=== PATIENT | female | born 1980 | race Caucasian/White ===

== ENCOUNTER 2016-08-27 16:14 | Observation (INO) | payer OTHER ==
[2016-08-27 17:52] LABS: Urine Bacteria Absent (Absent); Urine Bilirubin Negative (Negative); Urine Glucose Negative (Negative); Urine Nitrite Negative (Negative)
[2016-08-27 18:23] LABS: Hematocrit 37 % (35-47); Hemoglobin 11.9 g/dl (12.0-16.0); Mean Corpuscular HGB Conc 32 g/dl (31-36); Mean Corpuscular Hemoglobin 27 pg (27-31); Mean Corpuscular Volume 83 fL (80-97); Mean Platelet Volume 8 um3 (7.4-10.4); Red Blood Count 4.47 10^6/ul (4.0-5.4); Red Cell Distribution Width 15 % (10.5-15); White Blood Count 7.2 10^3/ul (3.5-10.8)
[2016-08-27 18:37] LABS: Albumin 4.5 g/dL (3.2-5.2); BUN/Creatinine Ratio 15.7 (8-20); Calcium 9.9 mg/dL (8.6-10.3); EGFR African American 100.6 (>60); EGFR Non-African American 78.2 (>60); Globulin 2.8 g/dL (2-4); Potassium 3.6 mmol/L (3.5-5.0); Total Bilirubin 0.3 mg/dL (0.2-1.0); Total Protein 7.3 g/dL (6.4-8.9)
[2016-08-27] MEDS ORDERED: Morphine INJ* 4 MG/ML 1 ML CARPUJECT IV ONE (20:22)
[2016-08-27] MEDS ORDERED: Ondansetron INJ* 2 MG/ML VIAL IV ONE (20:22)
--- NOTE | 2016-08-27 20:35 | RAD ---
Indication: Evaluate for ectopic . Real-time sonography of the pelvis was performed. The uterus demonstrates an intrauterine device in place which appears to be partially within the cervix. There is echogenic free fluid in the pelvis. This is suggestive of hemorrhage. The right ovary measures 2.4 x 2.1 x 3.1 cm. Extra ovarian echogenic mass is noted measuring 4.0 x 3.7 x 3.6 cm. A ruptured ectopic cannot be excluded. The left ovary measures 2.0 x 1.5 x 2.3 cm. IMPRESSION: Echogenic free fluid is noted suggestive of hemorrhage. Echogenic right adnexal mass suspicious for ectopic . No intrauterine is noted. There is a low lying intrauterine device noted. Findings were discussed with Dr. Ross at 2031 hours.
[2016-08-27] MEDS ORDERED: ceFAZolin 2 GM PREMIX (*) 2 GM/50 ML BAG IVPB ONE (21:44)
[2016-08-27] MEDS ORDERED: Propofol* 10 MG/ML 20 ML BTL IV PUSH ONE (22:00)
[2016-08-27] MEDS ORDERED: Lidocaine 2% MPF* 2 ML VIAL ONE (22:00)
[2016-08-27] MEDS ORDERED: Dexamethasone IV* 4 MG/ML 1 ML (4 MG) ONE (22:00)
[2016-08-27] MEDS ORDERED: Succinylcholine* 20 MG/ML 10 ML VIAL ONE (22:00)
[2016-08-27] MEDS ORDERED: fentaNYL* 50 MCG/ML 2 ML VIAL (100 MCG VIAL) ONE ×2 (22:31→23:27)
--- NOTE | 2016-08-27 22:48 | ED ---
I, Rito,Nelli, scribed for Haris Ross MD on 08/27/16 at 1938 . GI/ HPI - HPI Summary HPI Summary: This 35 y/o female presents to ED from Urgent Care for intermittent pelvic pain that radiates to back and BLE since 5 days ago. Pt has had IUD for the last 3 months. Positive urine test at Urgent Care. Pt reports mild spotting. She has been controlling her abd pain with Gas X, Tums, and APAP. PMHx includes perforated ulcer s/p surgery. LMP was 07/20/2016. - History of Current Complaint Chief Complaint: EDAbdPain Time Seen by Provider: 08/27/16 16:16 Stated Complaint: PELVIC PAIN/POSS PREG Hx Obtained From: Patient, Medical Records Onset/Duration: Started Days Ago, Resolved Timing: Intermittent Pain Intensity: 1 Location of Pain: Suprapubic Pain Characteristics: Cramping Associated Signs and Symptoms: Negative: Nausea, Vomiting, Fever Aggravating Factor(s): Nothing Alleviating Factor(s): Spontaneous Resolution - Allergy/Home Medications Allergies/Adverse Reactions: Allergies Allergy/AdvReac Type Severity Reaction Status Date / Time No Known Allergies Allergy Verified 08/27/16 16:21 Home Medications: Home Medications NK [No Home Medications Reported] 08/27/16 [History Confirmed 08/27/16] PMH/Surg Hx/FS Hx/Imm Hx GI History: Reports: Hx Ulcer Infectious Disease History: No Infectious Disease History: Denies: Traveled Outside the [place] in Last 30 Days - Family History Known Family History: Negative: Other - Negative ectopic - Social History Alcohol Use: Occasionally Hx Substance Use: No Substance Use Type: Reports: None Hx Tobacco Use: No Smoking Status (MU): Never Smoked Tobacco Review of Systems Negative: Fever Negative: Erythema Negative: Sore Throat Negative: Chest Pain Negative: Cough Negative: Abdominal Pain, Vomiting, Nausea Positive: pain - pelvic pain. Negative: dysuria Negative: Anxious, Depressed All Other Systems Reviewed And Are Negative: Yes Physical Exam - Summary Physical Exam Summary: Constitutional: Well-developed, Well-nourished, Alert. (-) Distressed Skin: Warm to touch, Dry HENT: Normocephalic; Atraumatic Eyes: Conjunctiva normal Neck: Musculoskeletal ROM normal neck. (-) JVD, (-) Stridor, (-) Tracheal deviation Cardio: Rhythm regular, rate normal, Heart sounds normal; Intact distal pulses; The pedal pulses are 2+ and symmetric. Radial pulses are 2+ and symmetric. (-) Murmur Pulmonary/Chest wall: Effort normal. (-) Respiratory distress, (-) Wheezes, (-) Rales Abd: Soft, (+) LLQ and suprapubic tenderness, (-) Distension, (-) Guarding, (- ) Rebound Musculoskeletal: (-) Edema Lymph: (-) Cervical adenopathy Neuro: Alert, Oriented x3 Psych: Mood and affect Normal Triage Information Reviewed: Yes Vital Signs On Initial Exam: Initial Vitals Temp Pulse Resp BP Pulse Ox 98.6 F 93 18 143/71 100 08/27/16 16:17 08/27/16 16:17 08/27/16 16:17 08/27/16 16:17 08/27/16 16:17 Vital Signs Reviewed: Yes - Coni Coma Scale Coma Scale Total: 15 Diagnostics - Vital Signs Vital Signs Temp Pulse Resp BP Pulse Ox 08/27/16 19:00 84 117/86 100 08/27/16 18:30 86 113/82 99 08/27/16 18:00 92 100 08/27/16 17:30 85 82/68 96 08/27/16 17:19 79 100 08/27/16 17:17 118/99 08/27/16 16:17 98.6 F 93 18 143/71 100 - Laboratory Lab Results: Lab Results 08/27/16 08/27/16 08/27/16 Range/Units 17:30 18:10 18:10 WBC 7.2 (3.5-10.8) 10^3/ul RBC 4.47 (4.0-5.4) 10^6/ul Hgb 11.9 L (12.0-16.0) g/dl Hct 37 (35-47) % MCV 83 (80-97) fL MCH 27 (27-31) pg MCHC 32 (31-36) g/dl RDW 15 (10.5-15) % Plt Count 214 (150-450) 10^3/ul MPV 8 (7.4-10.4) um3 Neut % (Auto) 62.9 (38-83) % Lymph % (Auto) 30.2 (25-47) % [place] % (Auto) 5.0 (1-9) % Eos % (Auto) 1.1 (0-6) % Baso % (Auto) 0.8 (0-2) % Absolute Neuts (auto) 4.5 (1.5-7.7) 10^3/ul Absolute Lymphs (auto) 2.2 (1.0-4.8) 10^3/ul Absolute Monos (auto) 0.4 (0-0.8) 10^3/ul Absolute Eos (auto) 0.1 (0-0.6) 10^3/ul Absolute Basos (auto) 0.1 (0-0.2) 10^3/ul Absolute Nucleated RBC 0 10^3/ul Nucleated RBC % 0.1 INR (Anticoag Therapy) (0.89-1.11) APTT (26.0-36.3) seconds Sodium 137 (133-145) mmol/L Potassium 3.6 (3.5-5.0) mmol/L Chloride 104 (101-111) mmol/L Carbon Dioxide 25 (22-32) mmol/L Anion Gap 8 (2-11) mmol/L BUN 13 (6-24) mg/dL Creatinine 0.83 (0.51-0.95) mg/dL Est GFR ( Amer) 100.6 (>60) Est GFR (Non-Af Amer) 78.2 (>60) BUN/Creatinine Ratio 15.7 (8-20) Glucose 99 (70-100) mg/dL Calcium 9.9 (8.6-10.3) mg/dL Total Bilirubin 0.30 (0.2-1.0) mg/dL AST 15 (13-39) U/L ALT 10 (7-52) U/L Alkaline Phosphatase 67 (34-104) U/L Total Protein 7.3 (6.4-8.9) g/dL Albumin 4.5 (3.2-5.2) g/dL Globulin 2.8 (2-4) g/dL Albumin/Globulin Ratio 1.6 (1-3) Beta HCG, Quant 3697.00 mIU/mL Urine Color Straw Urine Appearance Clear Urine pH 5.0 (5-9) Ur Specific Sibley 1.004 L (1.010-1.030) Urine Protein Negative (Negative) Urine Ketones Negative (Negative) Urine Blood 2+ H (Negative) Urine Nitrate Negative (Negative) Urine Bilirubin Negative (Negative) Urine Urobilinogen Negative (Negative) Ur Leukocyte Esterase Negative (Negative) Urine WBC (Auto) Trace(0-5/hpf) (Absent) Urine RBC (Auto) Trace(0-2/hpf) (Absent) Ur Squamous Epith Cells Present H (Absent) Urine Bacteria Absent (Absent) Urine Glucose Negative (Negative) Blood Type Antibody Screen 08/27/16 08/27/16 Range/Units 18:10 18:10 WBC (3.5-10.8) 10^3/ul RBC (4.0-5.4) 10^6/ul Hgb (12.0-16.0) g/dl Hct (35-47) % MCV (80-97) fL MCH (27-31) pg MCHC (31-36) g/dl RDW (10.5-15) % Plt Count (150-450) 10^3/ul MPV (7.4-10.4) um3 Neut % (Auto) (38-83) % Lymph % (Auto) (25-47) % Darlington % (Auto) (1-9) % Eos % (Auto) (0-6) % Baso % (Auto) (0-2) % Absolute Neuts (auto) (1.5-7.7) 10^3/ul Absolute Lymphs (auto) (1.0-4.8) 10^3/ul Absolute Monos (auto) (0-0.8) 10^3/ul Absolute Eos (auto) (0-0.6) 10^3/ul Absolute Basos (auto) (0-0.2) 10^3/ul Absolute Nucleated RBC 10^3/ul Nucleated RBC % INR (Anticoag Therapy) 0.88 L (0.89-1.11) APTT 32.0 (26.0-36.3) seconds Sodium (133-145) mmol/L Potassium (3.5-5.0) mmol/L Chloride (101-111) mmol/L Carbon Dioxide (22-32) mmol/L Anion Gap (2-11) mmol/L BUN (6-24) mg/dL Creatinine (0.51-0.95) mg/dL Est GFR ( Amer) (>60) Est GFR (Non-Af Amer) (>60) BUN/Creatinine Ratio (8-20) Glucose (70-100) mg/dL Calcium (8.6-10.3) mg/dL Total Bilirubin (0.2-1.0) mg/dL AST (13-39) U/L ALT (7-52) U/L Alkaline Phosphatase (34-104) U/L Total Protein (6.4-8.9) g/dL Albumin (3.2-5.2) g/dL Globulin (2-4) g/dL Albumin/Globulin Ratio (1-3) Beta HCG, Quant mIU/mL Urine Color Urine Appearance Urine pH (5-9) Ur Specific Sibley (1.010-1.030) Urine Protein (Negative) Urine Ketones (Negative) Urine Blood (Negative) Urine Nitrate (Negative) Urine Bilirubin (Negative) Urine Urobilinogen (Negative) Ur Leukocyte Esterase (Negative) Urine WBC (Auto) (Absent) Urine RBC (Auto) (Absent) Ur Squamous Epith Cells (Absent) Urine Bacteria (Absent) Urine Glucose (Negative) Blood Type O Positive Antibody Screen Pending Result Diagrams: 08/27/16 18:10 08/27/16 18:10 Lab Statement: Any lab studies that have been ordered have been reviewed, and results considered in the medical decision making process. - Additional Comments Diagnostic Additional Comments: US Transvaginal -- Echogenic free fluid is noted suggestive of hemorrhage. Echogenic right adnexal mass suspicious for ectopic . No intrauterine is noted. There is a low lying intrauterine device noted. Findings were discussed with Dr. Ross at 2031 hours. Re-Evaluation - Re-Evaluation First Eval Re-Evaluation Time: 20:55 Change: Unchanged Comment: in room to re-evaluate the pt. Her vital is still wnl and stable. GIGU Course/Dx - Course Assessment/Plan: This 35 y/o female presents to ED for pelvic pain that has been intermittent since 5 days ago. Pt has had IUD since 3 months ago, and hasn' t had her menstrual cycle since 07/20/2016. US transvaginal indicates RIGHT adnexal mass with echogenic mass that is suspicious for ectopic . Bloodwork indicates that pt is hemodynically stable. US imaging results, physical exam findings, and plan of care are shared with sales enablement specialist sales correspondence clerk, Dr. Gomez, who will examine the pt in ED. - Diagnoses Provider Diagnoses: Ruptured ectopic - Physician Notifications Discussed Care Of Patient With: Dr. Gomez (sales enablement specialist) at 2039 PM Time Discussed With Above Provider: 20:40 Instructed by Provider To: MD Will See In ED - Critical Care Time Critical Care Time: 30-74 min - 45 minutes Discharge - Discharge Plan Condition: Stable Disposition: ADMITTED TO [facility] documentation as recorded by the Rito martell Soohyun accurately reflects the service I personally performed and the decisions made by , Haris Ross MD.
[2016-08-27] MEDS ORDERED: Atracurium* 10 MG/ML 10 ML VIAL ONE (22:52)
[2016-08-27] MEDS ORDERED: Bupivacaine 0.25% SDV* 30 ML ONE (22:57)
[2016-08-27] MEDS ORDERED: HYDROmorphone INJ* 1 MG/ML CARPUJECT SYRINGE IV PRN (23:05)
[2016-08-27] MEDS ORDERED: DiMENhydriNATE IV* 50 MG/ML VIAL IV PUSH PRN (23:05)
[2016-08-28] MEDS ORDERED: fentaNYL* 50 MCG/ML 2 ML VIAL (100 MCG VIAL) ONE (00:09)
[2016-08-28] MEDS: fentaNYL* 50 MCG/ML 2 ML VIAL (100 MCG VIAL) IV PRN ×2 (00:12→00:27)
[2016-08-28] MEDS ORDERED: oxyCODONE/Acetamin 5/325 MG* TAB PO PRN (00:18)
[2016-08-28] MEDS ORDERED: Ibuprofen TAB* 600 MG PO PRN (00:26)
[2016-08-28] MEDS ORDERED: NS 0.9% 1000 ML* 1,000 ML IV SCH (00:30)
[2016-08-28] MEDS ORDERED: oxyCODONE/Acetamin 5/325 MG* TAB ONE (01:05)
[2016-08-28] MEDS ORDERED: HYDROmorphone INJ* 1 MG/ML CARPUJECT SYRINGE IV PRN (01:57)
[2016-08-28 06:22] LABS: Hematocrit 30 % (35-47); Mean Corpuscular HGB Conc 33 g/dl (31-36); Mean Corpuscular Hemoglobin 27 pg (27-31); Mean Corpuscular Volume 82 fL (80-97); Mean Platelet Volume 8 um3 (7.4-10.4); Red Blood Count 3.66 10^6/ul (4.0-5.4); Red Cell Distribution Width 15 % (10.5-15); White Blood Count 5.2 10^3/ul (3.5-10.8)
[2016-08-28 11:44] VITALS: BP 109/56
--- NOTE | 2016-08-29 05:25 | OP ---
DATE OF OPERATION: 08/27/16 - ROOM #331 DATE OF : 80 SURGEON: Darnell Gomez MD VIDEO OPERATOR: Francisca Dick MD ANESTHESIOLOGIST: Jack Gaines MD ANESTHESIA: General anesthetic with endotracheal intubation. PRE-OP DIAGNOSES: Acute abdomen, right adnexal mass on ultrasound, positive test and presence of the intrauterine device. POST-OP DIAGNOSIS: Acute abdomen, right adnexal mass on ultrasound, positive test and presence of the intrauterine device, a hemoperitoneum and a right ruptured corpus luteum cyst. OPERATIVE PROCEDURE: Removal of intrauterine device and laparoscopic evacuation of hemoperitoneum and cautery hemostasis of hemorrhagic corpus luteum cyst. ESTIMATED BLOOD LOSS: Less than 100 cc. SPECIMEN SENT TO PATHOLOGY: Pelvic peritoneal fluid to rule out products of conception. FLUIDS: She received IV crystalloid fluid. URINE OUTPUT: Clear. FINDINGS LAPAROSCOPICALLY: The patient was noted to have a hemoperitoneum that covered the entire pelvic organs, I estimated this to be around 700 to 1000 cc. She was noted to have normal uterus, normal left tube and ovary, and normal right tube and a right and a right ruptured hemorrhagic corpus luteum cyst that was actively bleeding. DESCRIPTION OF PROCEDURE: The patient was taken to the operating room where she was identified. She was placed on the operating room table where a general anesthetic with endotracheal intubation was obtained without difficulty. She was then placed in a dorsal lithotomy position, prepped and draped in a normal sterile fashion. Attention was then brought on to the patient's perineum, where the bladder was catheterized with a Hedrick catheter and drained clear urine after which a side-view speculum was inserted into the patient's vagina. The cervix was identified, grasped with a single-tooth tenaculum, the strings of the IUD were also noted. These were grasped with a long Nani clamp and removed atraumatically. After which I proceeded to insert an intrauterine ClearView manipulator into the cervix. The balloon and the manipulator was then intubated with 4 cc of sterile water and a single-tooth tenaculum was then removed as well as speculum. Attention was then brought on to the patient's abdomen where a 1 cm infraumbilical skin incision was made with the knife and carried through to the underlying layer of fascia. The fascia was then grasped with Darwin clamps, brought up to the incision. The fascia was then incised with a knife. Entry into the abdominal cavity was confirmed using Nani clamps. The Darwin clamps in the fascia were then replaced with 0 Polysorb sutures and then through this incision a 10-mm blunt trocar was introduced. The balloon and the trocar was inflated with 20 cc of air. The sutures were then attached to the trocar. The abdomen was then insufflated with CO2 gas, 2 another trocars were introduced at the right and left upper quadrant of the patient's abdomen under direct visualization. Findings laparoscopically were noted above. At this point, the patient was then placed in a steep Trendelenburg position and I proceeded to suction blood within the pelvis. After suctioning, it was noted that the right tube was within normal limits and the right ovary had findings consistent with a ruptured hemorrhagic corpus luteum cyst. The corpus luteum cyst was actively bleeding. I grasped the corpus luteum cyst with cautery forceps and applied cautery and I was able to stop the bleeding and noted hemostasis. Some of the fluid within the pelvis remained. There were some clots and there was also tissue that did not appear to be clot on bleeding. All of this was placed again under direct visualization in an Endobag. The Endobag was then removed and this specimen was sent to pathology to rule out products of conception. Second look again revealed complete hemostasis, the pelvis was then fully irrigated with normal saline. The irrigation fluid was suctioned and all the instruments were then removed from the patient's abdomen. The umbilical incision and fascia was closed with 0 Polysorb suture in running fashion and the rest of the incisions were then closed including umbilicus with a 4-0 Monocryl subcuticular stitch. The Hedrick catheter was removed as well as the uterine manipulator. Sponge, lap, and needle counts were correct x2. She was then transferred to the recovery room area in stable condition. CC: Francisca Dick MD; [facility]* [id number]/[facility] #: [id number] ALEC
--- NOTE | 2017-05-10 00:14 | DS ---
DISCHARGE SUMMARY: DATE OF ADMISSION: DATE OF DISCHARGE: HISTORY: The patient was admitted on 08/27/16 and underwent a removal of intrauterine device, laparoscopic evacuation of hemoperitoneum, cautery hemostasis of hemorrhagic corpus luteum. This operation was performed by Dr. Gomez with operations assistant, Dr. Dick. The patient's postoperative course was unremarkable on hospital day, 1 postop day 0. The patient was tolerating regular diet and was given discharge instructions for home. She was given precautions and was instructed to follow up with her primary surgeon, Dr. Gomez, for postoperative care. The final pathology specimen revealed fallopian tube contents, products of conception including rare immature villi and implantation site related to hemorrhage, so indeed the patient ended up with a diagnosis of a ruptured ectopic and corpus luteum hemorrhagic cyst as was initially thought during the surgery. The postoperative hemoglobin was noted to be 10.03, hematocrit was 30, and had a normal platelet count of 179,000. The patient was discharged to home and was to follow up with Dr. Gomez for further care and management status post laparoscopic surgery. [id number]/[facility] #: [id number] [place]
== END 2016-08-28 12:15 | disposition home or self-care (01) ==
LOC: ED 16:14 → OR 21:28 → SSU 08-28 00:52
PROVIDERS: ADMIT Obstetrics & Gynecology; ATTEND Obstetrics & Gynecology
PROC: 10D28ZZ Extraction of Products of Conception, Ectopic, Via Natural or Artificial Opening Endoscopic (ICD-10-PCS; principal; 2016-08-28)
PROC: 0U904ZZ Drainage of Right Ovary, Percutaneous Endoscopic Approach (ICD-10-PCS; 2016-08-28)
PROC: 0UPD4HZ Removal of Contraceptive Device from Uterus and Cervix, Percutaneous Endoscopic Approach (ICD-10-PCS; 2016-08-28)
DX: O00.90 Unspecified ectopic pregnancy without intrauterine pregnancy (principal); N83.11 Corpus luteum cyst of right ovary; K66.1 Hemoperitoneum; R10.30 Lower abdominal pain, unspecified; Z97.5 Presence of (intrauterine) contraceptive device
CPT/HCPCS: 36415; 76817; 80053; 81003; 81015; 84702; 85025; 85610; 85730; 86850; 86870; 86880; 86900; 86901; 86905; 86906; 86922; 88305; 96361; 96374; 96375; 99285; A9270-GY; G0378; J0330; J0690; J1100; J1170; J2270; J2405; J2704; J3010

== ENCOUNTER 2016-09-25 20:07 | Emergency (ER) | payer OTHER ==
[2016-09-25] MEDS: NS 0.9% 1000 ML* 2,000 ML IV ONE ×2 (21:45→23:06)
[2016-09-25 21:55] LABS: Hematocrit 33 % (35-47); Hemoglobin 10.7 g/dl (12.0-16.0); Mean Corpuscular HGB Conc 32 g/dl (31-36); Mean Corpuscular Hemoglobin 26 pg (27-31); Mean Corpuscular Volume 80 fL (80-97); Mean Platelet Volume 8 um3 (7.4-10.4); Red Blood Count 4.14 10^6/ul (4.0-5.4); Red Cell Distribution Width 15 % (10.5-15); White Blood Count 7.9 10^3/ul (3.5-10.8)
[2016-09-25 22:12] LABS: Albumin 4.2 g/dL (3.2-5.2); BUN/Creatinine Ratio 17.5 (8-20); C Reactive Protein 2.73 mg/L (< 5.00); Calcium 9.6 mg/dL (8.6-10.3); EGFR African American 104.4 (>60); EGFR Non-African American 81.2 (>60); Globulin 2.8 g/dL (2-4); Magnesium 2.1 mg/dL (1.9-2.7); Total Bilirubin 0.3 mg/dL (0.2-1.0)
[2016-09-25 22:50] LABS: TSH (Thyroid Stimulating Horm) 1.84 mcIU/mL (0.34-5.60)
--- NOTE | 2016-09-25 23:02 | RAD ---
Indication: History of RIGHT sided ectopic. LEFT adnexal region tenderness. Comparison: August 27, 2016 ultrasound. Technique: Transvaginal pelvic ultrasound. Report: 9.0 x 4.4 x 5.9 cm anteverted uterus. 14.8 mm endometrium. Small volume of fluid in the endometrial cavity. Small volume of free pelvic fluid in the RIGHT adnexal region. 3.2 x 2.5 x 3.1 cm RIGHT ovary with documented vascular flow is remarkable for a 2.1 x 2.0 x 2.1 cm avascular cyst with a few thin internal septations new compared with the previous exam. This may represent a follicular or hemorrhagic cyst. 3.8 x 2.4 x 2.5 cm LEFT ovary with documented vascular flow is remarkable for a 2.5 x 1.8 x 2.2 cm hypoechoic lesion with a reticulated internal architecture pattern without gross intrinsic vascularity most suspicious for a hemorrhagic cyst. No extraovarian adnexal region lesions evident. IMPRESSION: 1. Physiologic small volume of RIGHT adnexal region free fluid. 2. 2.1 cm follicular or hemorrhagic cyst of the RIGHT ovary. 3. 2.5 cm probable hemorrhagic cyst of the LEFT ovary. 4. Reassessment of the bilateral ovaries with ultrasound in 2 menstrual cycle suggested. 5. Upper normal endometrial thickness.
--- NOTE | 2016-09-25 23:57 | ED ---
Westley Mcclain Claudia, scribed for Dawood Estes MD on 09/25/16 at 2055 . Syncope/Near Syncope - HPI Summary HPI Summary: 36 year old female presents to the ED from [facility] after 2 near syncopal episodes. Pt notes one episode this am and one episode at about 1800. She notes during both episodes she was at rest and during those episodes she experiences a few seconds of dizziness. Pt notes the second episode was worse and she had to leave her chair and move to the floor due to the fact that she thought she was going to faint. pt also notes that after the second episode she had some left arm pain and notes it "felt heavy". She denies any CP, fever, chills or any dizziness now. She notes that she has a PSHx for an ectopic 4 weeks ago. Pt also notes that she is being followed by OB for elevated HCG levels. Pt denies PMHx of blood clots. SHx non smoker. The pt is not currently on any control pills. pt also notes that she has been having some "twingy" abd sensations for the past few weeks on her left upper abdomen but is unsure if it is related to the ectopic of the right abdomen. - History Of Current Complaint Chief Complaint: EDDizziness Time Seen by Provider: 09/25/16 20:43 Hx Obtained From: Patient Onset/Duration: Sudden Onset Timing: Intermittent Episode Lasting - a few seconds Activity At Onset: At Rest Associated Head Trauma: No Aggravating Factor(s): Nothing Alleviating Factor(s): Nothing Associated Signs And Symptoms: Dizzy - Allergies/Home Medications Allergies/Adverse Reactions: Allergies Allergy/AdvReac Type Severity Reaction Status Date / Time No Known Allergies Allergy Verified 08/27/16 16:21 PMH/Surg Hx/FS Hx/Imm Hx Previously Healthy: Yes Endocrine/Hematology History: Denies: Hx Diabetes GI History: Reports: Hx Ulcer, Other GI Disorders - abdominal aneurysm Infectious Disease History: No Infectious Disease History: Denies: Traveled Outside the [place] in Last 30 Days - Family History Known Family History: Negative: Other - Negative ectopic - Social History Occupation: Employed Full-time Lives: With Family Alcohol Use: Occasionally Hx Substance Use: No Substance Use Type: Reports: None Hx Tobacco Use: No Smoking Status (MU): Never Smoked Tobacco Review of Systems Constitutional: Negative Negative: Fever, Chills Eyes: Negative ENT: Negative Cardiovascular: Negative Negative: Palpitations, Chest Pain Respiratory: Negative Gastrointestinal: Negative Negative: Vomiting, Diarrhea, Nausea Genitourinary: Negative Musculoskeletal: Negative Skin: Negative Neurological: Other - intermittent episodes od dizziness now resolved Psychological: Normal All Other Systems Reviewed And Are Negative: Yes Physical Exam Triage Information Reviewed: Yes Vital Signs On Initial Exam: Initial Vitals Temp Pulse Resp BP Pulse Ox 98.7 F 96 16 113/74 100 09/25/16 20:11 09/25/16 20:11 09/25/16 20:11 09/25/16 20:11 09/25/16 20:11 Vital Signs Reviewed: Yes Appearance: Positive: Well-Appearing, No Pain Distress Skin: Positive: Warm, Skin Color Reflects Adequate Perfusion, Dry Head/Face: Positive: Normal Head/Face Inspection Eyes: Positive: EOMI, SARAH ENT: Positive: Normal ENT inspection Neck: Positive: Supple, Nontender Respiratory/Lung Sounds: Positive: Clear to Auscultation, Breath Sounds Present Cardiovascular: Positive: RRR Abdomen Description: Positive: Nontender, Soft Bowel Sounds: Positive: Present Musculoskeletal: Positive: Normal, Strength/ROM Intact Neurological: Positive: Normal, Sensory/Motor Intact, Alert, Oriented to Person Place, Time Diagnostics - Vital Signs Vital Signs Temp Pulse Resp BP Pulse Ox 09/25/16 20:11 98.7 F 96 16 113/74 100 - Laboratory Lab Results: Lab Results 09/25/16 09/25/16 09/25/16 Range/Units 21:45 21:45 21:45 WBC 7.9 (3.5-10.8) 10^3/ul RBC 4.14 (4.0-5.4) 10^6/ul Hgb 10.7 L (12.0-16.0) g/dl Hct 33 L (35-47) % MCV 80 (80-97) fL MCH 26 L (27-31) pg MCHC 32 (31-36) g/dl RDW 15 (10.5-15) % Plt Count 258 (150-450) 10^3/ul MPV 8 (7.4-10.4) um3 Neut % (Auto) 61.9 (38-83) % Lymph % (Auto) 30.7 (25-47) % Ware % (Auto) 4.9 (1-9) % Eos % (Auto) 1.2 (0-6) % Baso % (Auto) 1.3 (0-2) % Absolute Neuts (auto) 4.9 (1.5-7.7) 10^3/ul Absolute Lymphs (auto) 2.4 (1.0-4.8) 10^3/ul Absolute Monos (auto) 0.4 (0-0.8) 10^3/ul Absolute Eos (auto) 0.1 (0-0.6) 10^3/ul Absolute Basos (auto) 0.1 (0-0.2) 10^3/ul Absolute Nucleated RBC 0 10^3/ul Nucleated RBC % 0 INR (Anticoag Therapy) 0.88 L (0.89-1.11) APTT 30.5 (26.0-36.3) seconds D-Dimer, Quantitative 218 (Less Than 230) ng/mL Sodium 138 (133-145) mmol/L Potassium 4.0 (3.5-5.0) mmol/L Chloride 103 (101-111) mmol/L Carbon Dioxide 29 (22-32) mmol/L Anion Gap 6 (2-11) mmol/L BUN 14 (6-24) mg/dL Creatinine 0.80 (0.51-0.95) mg/dL Est GFR ( Amer) 104.4 (>60) Est GFR (Non-Af Amer) 81.2 (>60) BUN/Creatinine Ratio 17.5 (8-20) Glucose 103 H (70-100) mg/dL Lactic Acid (0.5-2.0) mmol/L Calcium 9.6 (8.6-10.3) mg/dL Magnesium 2.1 (1.9-2.7) mg/dL Total Bilirubin 0.30 (0.2-1.0) mg/dL AST 16 (13-39) U/L ALT 14 (7-52) U/L Alkaline Phosphatase 67 (34-104) U/L Total Creatine Kinase 71 (10-223) U/L CK-MB (CK-2) 1.0 (0.6-6.3) ng/mL Troponin I 0.00 (<0.04) ng/mL C-Reactive Protein 2.73 (< 5.00) mg/L Total Protein 7.0 (6.4-8.9) g/dL Albumin 4.2 (3.2-5.2) g/dL Globulin 2.8 (2-4) g/dL Albumin/Globulin Ratio 1.5 (1-3) Lipase 44 (11.0-82.0) U/L TSH 1.84 (0.34-5.60) mcIU/mL Beta HCG, Quant 69.83 mIU/mL 09/25/16 Range/Units 21:45 WBC (3.5-10.8) 10^3/ul RBC (4.0-5.4) 10^6/ul Hgb (12.0-16.0) g/dl Hct (35-47) % MCV (80-97) fL MCH (27-31) pg MCHC (31-36) g/dl RDW (10.5-15) % Plt Count (150-450) 10^3/ul MPV (7.4-10.4) um3 Neut % (Auto) (38-83) % Lymph % (Auto) (25-47) % Ware % (Auto) (1-9) % Eos % (Auto) (0-6) % Baso % (Auto) (0-2) % Absolute Neuts (auto) (1.5-7.7) 10^3/ul Absolute Lymphs (auto) (1.0-4.8) 10^3/ul Absolute Monos (auto) (0-0.8) 10^3/ul Absolute Eos (auto) (0-0.6) 10^3/ul Absolute Basos (auto) (0-0.2) 10^3/ul Absolute Nucleated RBC 10^3/ul Nucleated RBC % INR (Anticoag Therapy) (0.89-1.11) APTT (26.0-36.3) seconds D-Dimer, Quantitative (Less Than 230) ng/mL Sodium (133-145) mmol/L Potassium (3.5-5.0) mmol/L Chloride (101-111) mmol/L Carbon Dioxide (22-32) mmol/L Anion Gap (2-11) mmol/L BUN (6-24) mg/dL Creatinine (0.51-0.95) mg/dL Est GFR ( Amer) (>60) Est GFR (Non-Af Amer) (>60) BUN/Creatinine Ratio (8-20) Glucose (70-100) mg/dL Lactic Acid 0.9 (0.5-2.0) mmol/L Calcium (8.6-10.3) mg/dL Magnesium (1.9-2.7) mg/dL Total Bilirubin (0.2-1.0) mg/dL AST (13-39) U/L ALT (7-52) U/L Alkaline Phosphatase (34-104) U/L Total Creatine Kinase (10-223) U/L CK-MB (CK-2) (0.6-6.3) ng/mL Troponin I (<0.04) ng/mL C-Reactive Protein (< 5.00) mg/L Total Protein (6.4-8.9) g/dL Albumin (3.2-5.2) g/dL Globulin (2-4) g/dL Albumin/Globulin Ratio (1-3) Lipase (11.0-82.0) U/L TSH (0.34-5.60) mcIU/mL Beta HCG, Quant mIU/mL Result Diagrams: 09/25/16 21:45 09/25/16 21:45 Lab Statement: Any lab studies that have been ordered have been reviewed, and results considered in the medical decision making process. - Radiology CXR Xray Interpretation: No Acute Changes Radiology Interpretation Completed By: ED Physician - Ultrasound No standard instances Ultrasound Interpretation: Positive (See Comments) - Transvaginal US: 1. Physiologic small volume of RIGHT adnexal region free fluid. 2. 2.1 cm follicular or hemorrhagic cyst of the RIGHT ovary. 3. 2.5 cm probable hemorrhagic cyst of the LEFT ovary. 4. Reassessment of the bilateral ovaries with ultrasound in 2 menstrual cycle suggested. 5. Upper normal endometrial thickness. Ultrasound Interpretation Completed By: Radiologist - EKG 2109 Cardiac Rate: NL EKG Rhythm: Sinus Rhythm - 72 BEATS/MIN ST Segment: Normal Ectopy: None Re-Evaluation - Re-Evaluation 1 Re-Evaluation Time: 23:28 Comment: Discussed lab results and imaging including US and CXR with pt. Pt is agreeable with the plan to be d/c home and f/u. Course/Dx Assessment/Plan: DISCUSSED WITH RAMY BLACKWELL. DISCUSSED RESULTS WITH PATIENT. SHE HAS F/U WITH RAMY 09/26/16. F/U PMD FOR NEAR SYNCOPE. RETURN IF WORSE. DISCHARGE HOME STABLE. - Diagnoses Provider Diagnoses: Near syncope - Physician Notifications Discussed Care Of Patient With: Call out to Dr. Ebony MCCANN [phone]. Call returned 1958. Discussed care of pt with Dr. Beck Time Discussed With Above Provider: 21:38 Discharge - Discharge Plan Condition: Stable Disposition: HOME Patient Education Materials: Near Syncope (ED) Referrals: Fco Victoria MD [Primary Care Provider] - Additional Instructions: FOLLOW UP WITH YOUR PRIMARY CARE DOCTOR FOR THESE EPISODES AND YOUR OBGYN TOMORROW SCHEDULED. RETURN TO THE EMERGENCY DEPARTMENT FOR ANY WORSENING OF YOUR CONDITION; CHEST PAIN, SHORTNESS OF BREATH, PALPITATIONS, YOU FEEL ILL OR QUESTIONS OR CONCERNS. The documentation as recorded by the Westley martell Claudia accurately reflects the service I personally performed and the decisions made by me, Dawood Estes MD.
[2016-09-26 00:18] VITALS: BP 121/67
--- NOTE | 2016-09-26 07:12 | RAD ---
INDICATION: Near syncope. COMPARISON: There are no prior studies available for comparison. TECHNIQUE: A portable view of the chest was obtained. FINDINGS: Cardiac and mediastinal contours appear to be within normal limits. The lungs are clear. No pleural effusion is seen. IMPRESSION: NO EVIDENCE FOR ACUTE DISEASE.
== END 2016-09-26 00:18 | disposition home or self-care (01) ==
LOC: ED 20:07
DX: R55 Syncope and collapse (principal); Z87.11 Personal history of peptic ulcer disease; N83.201 Unspecified ovarian cyst, right side
CPT/HCPCS: 36415; 71010; 76830; 80053; 82550; 82553; 83605; 83690; 83735; 84443; 84484; 84702; 85025; 85379; 85610; 85730; 86140; 93005; 96360; 99282

== ENCOUNTER 2018-07-05 07:16 | Day surgery (SDC) | payer OTHER ==
--- NOTE | 2018-06-27 16:03 | HP ---
HISTORY AND PHYSICAL: DATE OF ADMISSION: 07/05/18 Surgery is scheduled for 07/05/18 at [facility]. ATTENDING PHYSICIAN: Dr. Matt Corona.* (DICTATED BY SHOAIB BUSH) CHIEF COMPLAINT: Venous insufficiency involving the right lower extremity, here for excision of moderate phlebectomies to the right lower leg by Dr. Corona. HISTORY OF PRESENT ILLNESS: She is a 37-year-old female, who has a prior history of having venous disease with previous surgeries several years ago. The patient presented in January [address] Corona complaining of symptomatic varicose veins on her right lower extremity and new varicose veins that she found on the posterior aspect of her left calf as well as right side. The patient states that she has mild edema on her right side at the end of the day. She does complain of heaviness, achiness, worsening varicosities in appearance over the past several years and occasional itching and burning. She previously had closure of the left greater saphenous vein approximately 10 years ago, did quite well for several years. The patient has worn compression stockings as a supportive treatment without much in the way of improvement. Her past medical history is significant for previous varicose vein surgery as noted on the left side and a history of an ectopic . Her family history is positive for her mother having varicose veins. On physical exam in the office on 02/21/18, the patient was noted to have on the right side reticular and telangiectatic veins noted on the right. On the left side, the patient had some veins measuring in the 6 mm range on the mid calf. There was no hyperpigmentation or dermatitis noted bilaterally. The patient had strong palpable pulses bilaterally. A duplex scan in January was done. The right side reveals no evidence of DVT. There was no reflux noted in the greater saphenous or short saphenous vein. On the right side, the posterior calf, the patient has varicose veins in the 4.6 mm range with an incompetent spindle plumber measuring 4.5 mm with reflux. The short saphenous vein on the right reveals no reflux. The left side was unremarkable. Diagnostic impression is symptomatic varicose veins involving the right lower extremity and there are telangiectasias on the left side. Based on these findings, it was recommended that the patient proceed with microphlebectomies and ligation of the spindle plumber on the right leg. At this time, the patient is being scheduled for microphlebectomies of the right lower extremity to be done by Dr. Corona on 07/05/18. PAST MEDICAL HISTORY: Significant for previous venous closure of the left greater saphenous vein approximately 10 years ago. She does have a prior history of ectopic a few years back. She did have a perforated ulcer as a teenager and had to have abdominal exploration for the repair of this perforated ulcer. Previously had her wisdom teeth removed and had a lens implant on the left and LASIK surgery on her right eye. She denies any chronic medical disorders such as hypertension, cardiac disease, heart murmur. No history of diabetes, asthma. She has no chronic GI disorders despite the problem as a teenager. She is on no medicines in regards to this. CURRENT MEDICATIONS: 1. She takes bupropion SR 150 mg once a day. 2. She takes Junel 1.5/30 mcg. This is a hormonal replacement. ALLERGIES: The patient has no known allergies to medicines or environmental. REVIEW OF SYSTEMS: Negative. PHYSICAL EXAMINATION GENERAL: The patient is a young healthy adult, in no apparent distress. VITAL SIGNS: She is 5 feet 4 inches, weight is 148 pounds. Her blood pressure is 100/68. Her BMI is 25.4. Her pulse is 98, respiratory rate was 16. HEENT: Within normal limits. NECK: Supple. There is no JVD or carotid bruits and her thyroid is felt to be normal. LUNGS: Clear throughout. HEART: Regular rhythm without a murmur heard. ABDOMEN: Reveals a well-healed midline scar from the previous abdominal exploration. The abdomen itself is soft and nontender. There are no masses. EXTREMITIES: Revealed full range of motion without limitations. The extremities as noted on the prior exam reveal varicose veins of the lower extremities. These are noted more so in the posterior calf on the right. NEUROLOGIC: She is nonfocal and grossly intact. She is alert and oriented x3. IMPRESSION: The patient with superficial venous insufficiency involving the right leg. PLAN: Plan at this time is for the patient to undergo microphlebectomies to be performed by Dr. Corona on the right lower extremity at [facility] on 07/05/18. The patient previously had been scheduled for this procedure in the office, had Valium preoperatively and had a vasovagal episode at the time of her procedure on 05/22/18. She became bradycardic, dizzy. The patient was placed in Trendelenburg. Her symptoms were relieved, but at that point, it was made the decision to cancel the surgery and reschedule her as ambulatory outpatient with anesthesia to be done at [facility]. So, at this time, the patient is currently scheduled on 07/05/18. SHOAIB BUSH [id number]/[facility] #: [id number] ALEC
[~2018-07-05 07:16] MED LIST: Buffered Lidocaine 0.9% SYRIN* 5 ML/SYR SYRINGE INTRADERM ONE
[2018-07-05] MEDS ORDERED: fentaNYL* 50 MCG/ML 2 ML VIAL (100 MCG VIAL) ONE (08:12)
[2018-07-05] MEDS ORDERED: Midazolam* 1 MG/ML 2 ML VIAL (2 MG) ONE (08:12)
[2018-07-05] MEDS ORDERED: Sodium Bicarbonate 8.4% SYR* 10 ML SYRINGE ONE (08:19)
[2018-07-05] MEDS ORDERED: Lidocaine 2% PF* 10 ML AMP ONE (08:19)
[2018-07-05] MEDS ORDERED: Lidocaine 1% INJ* 10 MG/ML 30 ML SDV ONE (08:19)
[2018-07-05] MEDS ORDERED: EPINEPHRINE 1 MG/ML 1 ML VIAL ONE (08:19)
[2018-07-05] MEDS ORDERED: Famotidine IV* 10 MG/ML 2 ML (20 mg) ONE (08:21)
[2018-07-05] MEDS ORDERED: Propofol* 10 MG/ML 20 ML BTL ONE (08:33)
[2018-07-05] MEDS ORDERED: Lidocaine 2% PF * 5 ML VIAL ONE (08:33)
[2018-07-05] MEDS ORDERED: Dexamethasone IV* 4 MG/ML 1 ML (4 MG) ONE (08:33)
[2018-07-05] MEDS ORDERED: Ondansetron INJ* 2 MG/ML VIAL ONE (08:33)
[2018-07-05] MEDS ORDERED: Acetaminophen TAB* 325 MG PO PRN (09:46)
[2018-07-05] MEDS ORDERED: DiMENhydriNATE IV* 50 MG/ML VIAL IV PUSH PRN (09:46)
[2018-07-05] MEDS ORDERED: PROCHLORPERAZINE INJ 5 MG/ML 2 ML VIAL IV PRN (09:46)
[2018-07-05] MEDS ORDERED: Ondansetron INJ* 2 MG/ML VIAL IV PRN (09:46)
[2018-07-05] MEDS ORDERED: Naloxone* 0.4 MG/ML 1 ML VIAL IV PRN (09:46)
[2018-07-05 09:56] VITALS: BP 104/69
--- NOTE | 2018-07-05 11:16 | OP ---
DATE OF OPERATION: 07/05/18 [facility] DATE OF : 80 SURGEON: Matt Corona MD ACCOUNT EXECUTIVE TRAINEE: Gina Zapata NP ANESTHESIA: Local plus MAC. PRE-OP DIAGNOSIS: Symptomatic varicose veins of the right lower extremity. POST-OP DIAGNOSIS: Symptomatic varicose veins of the right lower extremity. OPERATIVE PROCEDURE: Microphlebectomies less than 10 incisions (total of 7). ESTIMATED BLOOD LOSS: None. DESCRIPTION OF PROCEDURE: The patient was taken to the procedure room. She was placed in standing-up position. Marking of the varicosities were done with a sterile marker and after this was done, the patient was placed in a prone position. Under sedation, the patient was prepped and draped in the usual sterile fashion. After this was done, proper time-out and identification of side of surgery and patient were done and after this was completed, lidocaine 1 % and tumescent local anesthesia were infiltrated around the marked varicose veins. After this was done, the varicose veins were then removed by small incision in a stab avulsion technique. A total of 7 incisions were performed and after this was completed, incisions were closed with 5-0 Prolene and Steri- Strips. A light pressure dressing was applied to the right lower extremity. The patient tolerated the procedure well. She recovered and sent to recovery room. [id number]/[facility] #: [id number] ALEC
== END 2018-07-05 09:50 | disposition home or self-care (01) ==
LOC: OREAST 07:16
PROVIDERS: ATTEND Surgery
DX: I83.891 Varicose veins of right lower extremity with other complications (principal)
CPT/HCPCS: 81025; 88300; J1100; J2001; J2250; J2405; J2704; J3010